=== PATIENT | male | born 1945 | race Caucasian/White ===

== ENCOUNTER 2016-08-15 05:41 | Day surgery (SDC) | payer MEDICARE, OTHER ==
[~2016-08-15] VITALS: Ht 177.8 cm; Wt 85.6 kg
[2016-08-15] VITALS (9 sets, daily range): BP systolic 114–125; BP diastolic 55–72; PULSE 52–61; RESP 8–18; O2SAT 95–99
[~2016-08-15 05:41] MED LIST: Lactated Ringer's 1,000 ML IV ONE
[2016-08-15] MEDS ORDERED: Ondansetron 2 mg/mL 2 mL Inj ONE (05:42)
[2016-08-15] MEDS ORDERED: Lidocaine PF 1% 30 mL Inj ONE (05:42)
[2016-08-15] MEDS ORDERED: Dexamethasone 4 mg/mL Inj ONE (05:42)
[2016-08-15] MEDS ORDERED: Propofol 10,000 mCg/mL 20 mL Inj ONE (05:42)
[2016-08-15] MEDS ORDERED: fentaNYL-PF 50 mCg/mL 2 mL Inj ONE (05:42)
[2016-08-15] MEDS ORDERED: CeFAZolin Inj 2 GM in IV Premix 1 EACH IV ONE (06:00)
[2016-08-15] MEDS ORDERED: Bupivacaine Liposome 1.3% 20 mL Inj INFILTRATE ONE (06:00)
[2016-08-15] MEDS ORDERED: Acetaminophen IV 1,000 mg IV ONE (06:00)
[2016-08-15] MEDS ORDERED: OMEG500C3 PO (07:08)
[2016-08-15] MEDS ORDERED: IBUP400T22 PO (07:08)
[2016-08-15] MEDS ORDERED: MULT-1018 PO (07:08)
[2016-08-15] MEDS ORDERED: VIT BCOMPLEX PO (07:08)
[2016-08-15] MEDS ORDERED: [UNRECOGNIZED DRUG - OTHER] PO (07:08)
--- NOTE | 2016-08-15 07:21 | PCM.HPANE ---
Patient Data Surgeon Admitting Provider: Attending Provider:Presley Martínez MD Primary Care Physician:Gilbert Campbell MD Other Provider:Fernando Gr Anesthesia Reason for Visit Right Inguinal Hernia Ht/WT & BMI Height (Feet): 5 Height (Inches): 10.00 Weight (Kilograms): 85.6 Body Mass Index 27.00 Allergies Coded Allergies: No Known Allergies (Verified Allergy, Unknown, 08/12/16) Past Anesthesia History Anesthesia History: Denies:: Abnormal Airway, Anesthesia Reactions, Difficult Intubation, Malignant Hyperthermia Diabetes History Hx Diabetes?: No MRSA MRSA: No Medications Home Meds Incl Beta Justine: No Reported Medications Ibuprofen 400 Mg [id number] Mg PO QID PRN For Pain Ref 0 08/15/16 [vit d with calcium] No Conflict Check Po Daily 08/15/16 [place]-3 Fatty Acids (Fish Oil)500 Mg [id number] Mg PO 08/15/16 [vit bcomplex] No Conflict Check Po Daily 08/15/16 Multivitamin (Multi Vitamin Daily)1 Each Tablet1 Each PO DAILY 30 Days Ref 0 08/15/16 Discontinued Reported Medications Tamsulosin-Expunged Drug, Do Not Renew! (Flomax-Expunged Drug, Do Not Renew!) 0.4 Mg Capsule0.4 Mg PO DAILY #30 CAP 11/30/12 History History of ENT Problems?: Yes HEENT History: Positive for:: Hearing Problem Denies:: Abnormal Airway Difficult Intubation Other HEENT Pertinent History: S/P TONSILLECTOMY Hx of Heart Problems?: Yes Cardiovascular History: Positive for:: Chest Pain (2005 TESTING WNL) Denies:: Congestive Heart Failure Heart Murmur Hypertension Hx of Respiratory Problem?: No Respiratory History: Denies:: Tuberculosis Use of C-PAP Machine Hx Neurologic Problems?: No Neurological History: Denies:: CVA Hx of GI Problems?: Yes Gastrointestinal History: Denies:: Rectal Bleeding (HX COLON POLYPS/ HEMORRHOIDS) Other GI Pertinent History: S/P APPY RT INGUINAL HERNIA=CURRENT PROBLEM Hx of Problems?: No Male Hx: Positive for:: Prostate Problems (S/P SIMPLE RETROPUBIC PROSTATECTOMY ) Testicular Surgery (S/P VASECTOMY) Denies:: Scrotal Mass Skin History: Positive for:: History Skin Disorders? (ACTINIC KERATOSIS) Denies:: Pressure Ulcers Hx Musculoskeletal Problems?: Yes Musculoskeletal History: Positive for:: Musculoskeletal Trauma (S/P KNEE RPR' S X2) Denies:: Joint Replacement Hx of Psycho/Social Problems?: Yes Psycho Social History: Positive for:: Hx Depression Denies:: Anxiety Hx Surgeries?: Yes (VASECTOMY,SIMPLE RETROPUBIC PROSTATECTOMY,TONSILS,APPY, KNEE RPR'S X2) Hx Any Other Health Problems?: Yes Other History: Denies:: Cancer Endocrine Disease Hospitalization Thyroid Disease History Blood Transfusions: Denies:: Blood Transfusions Hx Diabetes: No Hx Alcohol Use: Yes (RARE)Have You Smoked inLast 12 mo: NoApprox How Many Cigarettes/day: 2 1/2 PPD X 12YRS Stop/Bang S-Snoring: Do You Snore Loudly: No T-Tired: feel tired, fatigued: No O-Obsered: Observed not breath: No P-Blood Pressure: treated: No B- Body Mass Index > 35 kg/m2: No A- Age over 50: Yes N- Neck Large Circumference: No G- Gender Male: Yes LARA Total Score: 2 Risk Assessment Category Category 1A: Patient has history of documented sleep apnea, and HAS NOT received any narcotic, sedative or anesthesia administration during this stay. Category 1B: Patient has history of documented sleep apnea, and HAS received any narcotic , sedative or anesthesia administration during this stay Category 2: Patient has SUSPECTED Obstructive Sleep Apnea, and HAS received any narcotic , sedative or anesthesia administration during this stay. Category 3: Patient has SUSPECTED Obstructive Sleep Apnea and HAS NOT received narcotic, sedative or anesthesia administration during this stay. Category 4: Outpatient in Procedural Areas with known sleep apnea or who screen positive for High Risk via the STOP/BANG questionnaire. Exam Exam Vital Signs Vital Signs Date Time Temp Pulse Resp B/P Pulse Ox O2 Delivery O2 Flow Rate FiO2 08/15/16 06:08 36.4 52 18 125/58 99 Room Air General Appearance: Alert, Oriented X3, Cooperative, No Acute Distress HEENT/AIRWAY: MP 1 Lungs: Normal Air Movement Heart: Exam Unremarkable Meds/Labs/Diagnostics Admission Meds Current Medications Lactated Ringer's 1,000 ml @ 120 mls/hr Q8H20M ONCE IV Last administered on t 05:51; Start 08/15/16 at 05:00; Stop 2/13/17 at 13:19 Acetaminophen/ Premix (Tylenol IV/IV Premix) 100 ml @ 400 mls/hr PREOP ONCE IV Last administered on 08/15/16t 06:30; Start 08/15/16 at 06:00; Stop at 06:14; Status DC Plan Impression Patient chart reviewed, patient interviewed and anesthestic plan with risks, benefits, and alternatives discussed, and informed consent obtained. NPO Status: 6pm ASA Physical Status: ASA2 Mod Systemic Disease Anesthetic Plan: GA Bene/Risks/Altern/Consents: Yes HP Complete Prior to Induction: Yes Ayleen Garcia DO Aug 15, 2016 07:21
[2016-08-15] MEDS ORDERED: Lactated Ringer's 500 ML IV PRN (07:27)
[2016-08-15] MEDS ORDERED: Lactated Ringer's 1,000 ML IV SCH (07:27)
[2016-08-15] MEDS ORDERED: fentaNYL-PF 50 mCg/mL 2 mL Inj IVPUSH PRN (07:30)
[2016-08-15] MEDS ORDERED: MetoCLOpramide 5 mg/mL 2 mL Inj IVPUSH PRN (07:30)
[2016-08-15] MEDS ORDERED: Phenylephrine 10,000 mCg/mL Inj IVPUSH PRN (07:30)
[2016-08-15] MEDS ORDERED: Ondansetron 2 mg/mL 2 mL Inj IVPUSH PRN (07:30)
[2016-08-15] MEDS ORDERED: HYDROmorphone 1 mg/mL Inj IVPUSH PRN (07:30)
[2016-08-15] MEDS ORDERED: EPHEDrine Sulfate 50 mg/mL Inj IVPUSH PRN (07:30)
[2016-08-15] MEDS ORDERED: Bupivacaine-MPF 0.5% W/EPI 30 mL Inj INFILTRATE ONE (08:03)
[2016-08-15] MEDS ORDERED: Bupivacaine Liposome 1.3% 20 mL Inj INJ ONE (08:03)
--- NOTE | 2016-08-15 09:23 | PCM.ANEP1 ---
Post Anesthesia Phase 1 PACU Phase 1 Assessment Vital Signs Vital Signs Date Time Temp Pulse Resp B/P Pulse Ox O2 Delivery O2 Flow Rate FiO2 08/15/16 09:19 61 15 120/63 97 Room Air 08/15/16 09:15 57 8 119/60 96 Room Air 08/15/16 09:10 60 18 124/55 96 Room Air 08/15/16 09:06 36.5 56 9 125/67 97 Simple Mask 8 08/15/16 06:08 36.4 52 18 125/58 99 Room Air Anesthetic Administered: GA Level of Alertness: Sleeping, hard to arouse ALLEN's with Equal Strength: Yes Pain: No Nausea or Vomiting: No Airway Device: Oralpharangeal Airway Oxygen Delivery: Simple Mask Lungs: Normal Air Movement Ayleen Garcia DO Aug 15, 2016 09:23
--- NOTE | 2016-08-15 09:23 | PCM.ANEP2 ---
Post Anesthesia Evaluation ASA/CMS Post Anesthesia VS in Patient's Normal Range?: Yes Resp Stable; Airway Patent?: Yes CV Function & Hydration Stable: Yes Mental Status Recovered?: Yes Pain control Satisfactory?: Yes N/V Control Satisfactory?: Yes Ayleen Garcia DO Aug 15, 2016 09:23
--- NOTE | 2016-08-17 02:16 | OP ---
[address] [address] OPERATIVE REPORT PATIENT: EVE DAVENPORT : 1945 MR#: [id number] ADMIT: 08/15/2016 JOB ID: [id number] DATE OF SURGERY: PREOPERATIVE DIAGNOSIS(ES): Symptomatic right inguinal hernia. POSTOPERATIVE DIAGNOSIS(ES): Symptomatic right inguinal hernia. OPERATION PERFORMED: Right inguinal hernia repair with mesh. SURGEON: Presley Martínez MD. ANESTHESIOLOGIST: Ayleen Garcia DO. ANESTHETIC: General plus . OPERATIVE SUMMARY: The patient was positioned supine and was administered general anesthesia. He was then prepped and draped in sterile fashion from the umbilicus to mid thigh. Marcaine 0.5% with epinephrine was then used to infiltrate the skin and subcutaneous tissue in the right inguinal canal. An oblique incision was then made through the skin and blunt cautery resection was used to divide the subcutaneous fat and Fozia's fascia layer down to level of the external oblique fascia. This was then incised with full-length incision. The cord was then exposed. It was then isolated from the canal, mobilized, and the upper inner aspect musculocutaneous fascia was then opened using blunt technique. Hernia fascia was then identified. It was clearly surrounding chronically inflamed adhesions and reflected superiorly and laterally. cord lipoma was visualized as well. The internal ring was noted to be . The hernia sac was then twisted tightly down to a and a suture ligature of 2-0 Vicryl was then administered. The sac was then infiltrated with local anesthetic. It was then the abdominal cavity proper. The floor was then reapproximated with interrupted [id number] of 2-0 Vicryl. A 3 x 6 inch sheath of Bard polypropylene mesh was then selected. It was then tailored and thinner appropriately to lie on the surface of the internal oblique and a stellate incision was then made at the internal ring to accommodate the cord. Lateral tails were then . Intermittent 2-0 Prolene was applied stable mesh mainly along the Poupart's ligament and pubic tubercle. The cord was then repositioned anatomically. The ilioinguinal nerve was noted to be intact approximation to the anterior cord and then the external oblique was reapproximated with a run of 2-0 PDS. Fozia's fascia was approximated using the same technique and suture, and finally the skin was reapproximated using a running subcuticular 4-0 Monocryl. The skin was then cleaned and dried, and a small strip of Telfa was applied over the incision line, and OpSite dressing was then applied over the operative area. The patient was then awakened, transferred to a gurney, and transported to recovery awake in stable condition.
== END 2016-08-15 23:59 | disposition home or self-care (01) ==
LOC: SAS 05:41
PROVIDERS: ATTEND Specialist
DX: K40.90 Unilateral inguinal hernia, without obstruction or gangrene, not specified as recurrent (principal)
CPT/HCPCS: 49505; C1781; J0131; J0690; J1100; J2405; J3010; J7120

== ENCOUNTER → 2017-02-24 | Day surgery (SDC) | payer MEDICARE, OTHER ==
[~2017-02-24] VITALS: Ht 179.1 cm; Wt 81.0 kg
[~2017-02-24] MED LIST changes: +IBUP400T22 PO; -Lactated Ringer's 1,000 ML IV ONE; +MULT-1018 PO; +OMEG500C3 PO; +Sodium Chloride LOK Flush 10 mL Syringe IV PRN; +VIT BCOMPLEX PO; +[UNRECOGNIZED DRUG - OTHER] PO; +fentaNYL-PF 50 mCg/mL 2 mL Inj IVPUSH PRN
[2017-02-24 08:29] VITALS: BP 130/79; PULSE 50; RESP 14; O2SAT 97
[2017-02-24] MEDS: 0.9% Sodium Chloride 1,000 ML IV SCH ×2 (08:39→08:58)
[2017-02-24 09:04] VITALS: BP 109/64; PULSE 49; RESP 12; O2SAT 98
[2017-02-24 09:17] VITALS: BP 101/61; PULSE 47; RESP 12; O2SAT 97
[2017-02-24 09:21] VITALS: BP 118/79; PULSE 57; RESP 12; O2SAT 98
--- NOTE | 2017-02-24 09:39 | ENDO ---
[address] [address] ENDOSCOPY PROCEDURE PATIENT: EVE DAVENPORT : 1945 MR#: [id number] ADMIT: 02/24/2017 JOB ID: [id number] DATE: 02/24/2017 TYPE OF OPERATION: Colonoscopy. PREOPERATIVE DIAGNOSIS(ES): Family history of colon cancer in a sister and history of colon polyps. POSTOPERATIVE DIAGNOSIS(ES): Mild sigmoid diverticulosis. ANESTHESIA: 1. Fentanyl 100 mcg. 2. Versed 5 mg IV administered. COMPLICATIONS: None. BLOOD LOSS: Minimal. DESCRIPTION OF PROCEDURE: After risks and benefits were explained to the patient, informed consent was obtained. After anesthesia administered, colonoscope was then inserted per rectum to the cecum. Mucosa carefully examined. Prep of the patient was fair. After the procedure was done, the scope withdrawn and procedure terminated. FINDINGS: Upon inspection of the anus, no masses, hemorrhoids, ulcers, or fissures are seen. Throughout the entire examination, there was mild sigmoid diverticulosis. No polyps or masses were seen. Retroflexion was normal. IMPRESSION: Mild sigmoid diverticulosis. RECOMMENDATIONS: 1. Repeat colonoscopy in five years given family history of colon cancer in a sister. 2. High-fiber diet.
== END | disposition home or self-care (01) ==
LOC: END 00:10
PROVIDERS: ATTEND Internal Medicine Gastroenterology
DX: Z12.11 Encounter for screening for malignant neoplasm of colon (principal); Z86.010 Personal history of colon polyps; Z80.0 Family history of malignant neoplasm of digestive organs; K57.30 Diverticulosis of large intestine without perforation or abscess without bleeding; N40.0 Benign prostatic hyperplasia without lower urinary tract symptoms; K64.9 Unspecified hemorrhoids
CPT/HCPCS: G0105; G0500; J2250; J3010; J7030